=== PATIENT | female | born 1950 | race Caucasian/White ===

== ENCOUNTER → 2017-07-26 | Outpatient (CLI) | payer MEDICARE ==
[~2017-07-26] MED LIST: AQUAPHOR OINT2270 GM TOP; ASPIRIN PO; ATARAX; ATARAX PO; ATIVAN PO; BENADRYL PO; CELLCEPT500 MG PO; DOXYCYCLINE PO; ELOCON15 GM; EUCERIN CREME60 GM TOP; FLUOCINOLONE AC15 GM TOP; HYDROCODON-ACE1 EAC7 PO; KEFLEX; LOPRESSOR PO; MACROBID100 MG PO; METOPROLOL TAR25 MG PO; PERIACTIN4 MG PO; PREDNISONE PO; PREMARIN; PYRIDIUM PO; TEMOVATE30 GM TOP; TOPROL XL
--- NOTE | ~2017-07-26 | US37 ---
[facility] A Service of [facility] RADIOLOGY TEXT RESULTS PATIENT: ANTHONY REEVES LOCATION: CNIV : 46 UNIT #: [id number] AGE: [address]: Harjit Garcia MD SEX: F ORDER DR: [id number] [facility] [address] [place], [place] [address] [id number] O MR#: [id number] Acc #: [id number] NAME: ANTHONY REEVES : 1950 SEX: F STUDY DATE/TIME: 07/26/2017 8:49 UNIT: CNIV ROOM: STUDY DESCRIPTION: US Carotid W/Doppler Bilateral Attending Physician: Harjit Garcia M.D. Referring Physician: Harjit Garcia M.D. Ordering Physician: Harjit Garcia M.D. Primary Care Physician: Julian Quan M.D. MEDICAL IMAGING REPORT This report is preliminary unless electronic signature is present EXAM Bilateral carotid duplex, 07/26/2017 HISTORY Carotid bruit, blurry vision one week ago. FINDINGS There is patent flow seen throughout the right common carotid, internal carotid, and external carotid arteries. At the right carotid bifurcation, there is heterogeneous, irregular, and echogenic plaque, which extends into the external and internal carotid arteries. The right common carotid artery peak velocity is 68 cm/sec. The right internal carotid artery peak systolic over end-diastolic velocities are: proximal 146/27 cm/sec, mid 102/22 cm/sec, distal 96/25 cm/sec. The right external carotid artery peak velocity is 102 cm/sec and vertebral artery 46 cm/sec. The right ICA/CCA ratio is 2.14. There is patent flow seen throughout the left common carotid, internal carotid, and external carotid arteries. At the left carotid bifurcation, there is some mild, irregular, and heterogeneous plaque, which is seen extending to the internal and external carotid arteries. The left common carotid artery peak velocity is 84 cm/sec. The left internal carotid artery peak systolic over end-diastolic velocities are: proximal 53/17 cm/sec, mid 54/16 cm/sec, distal 57/20 cm/sec. The left external carotid artery peak velocity is 68 cm/sec, vertebral artery 44 cm/sec. The left ICA/CCA ratio is 0.68. IMPRESSION 1. The right carotid artery has moderate atherosclerosis, which is consistent with 50% to 69% stenosis by duplex criteria. 2. The left carotid artery has mild atherosclerosis, with is not hemodynamically significant by duplex criteria (less than 50%). [facility] A Service of [facility] RADIOLOGY TEXT RESULTS PATIENT: ANTHONY REEVES LOCATION: CNIV : 46 UNIT #: [id number] AGE: [address]: Harjit Garcia MD SEX: F ORDER DR: 3. Vertebral flows antegrade bilaterally. Dictated by... Merlin Suárez M.D. THIS IS AN ELECTRONICALLY VERIFIED REPORT Merlin Suárez M.D. at 07/31/2017 8:55 AM Juan TD: 07/26/2017 14:32 JOB #: [id number] MEDICAL IMAGING REPORT Page 1 of 1 COPY
== END | disposition home or self-care (01) ==
LOC: CNIV 08:11
DX: R09.89 Other specified symptoms and signs involving the circulatory and respiratory systems (principal); I65.23 Occlusion and stenosis of bilateral carotid arteries
CPT/HCPCS: 93880